=== PATIENT | male | born 1990 | race Caucasian/White ===

== ENCOUNTER 2017-03-15 04:21 | Emergency (ER) | payer OTHER ==
[2017-03-15 05:00] LABS: ADD MAN DIFF? NO
[2017-03-15 05:06] LABS: BASO % 0 % (0-3); EOS # 0.2 x10^3/uL (0.0-0.7); EOS % 2 % (0-3); HEMATOCRIT 50.8 % (39.0-53.0); HEMOGLOBIN 17.4 g/dL (13.0-17.5); LYMPH % 29 % (24-48); MEAN CORPUSCULAR HEMOGLOBIN 30 pg (25-35); MEAN CORPUSCULAR HGB CONC 34 g/dL (31-37); MEAN CORPUSCULAR VOLUME 86 fL (79-100); MONO # 0.8 x10^3/uL (0.0-1.1); MONO % 12 % (0-9); NEUT # 3.9 x10^3uL (1.8-7.7); NEUT % 57 % (31-73); PLATELET COUNT 177 x10^3/uL (140-400); RED BLOOD COUNT 5.91 x10^6/uL (4.30-5.70); RED CELL DISTRIBUTION WIDTH 12.7 % (11.5-14.5); WHITE BLOOD COUNT 6.9 x10^3/uL (4.0-11.0)
[2017-03-15 05:16] LABS: ANION GAP 10 (6-14); BLOOD UREA NITROGEN 11 mg/dL (8-26); CALCIUM 8.9 mg/dL (8.5-10.1); CARBON DIOXIDE 30 mmol/L (21-32); CHLORIDE 100 mmol/L (98-107); CREATININE 0.9 mg/dL (0.7-1.3); GFR 102.8; GLUCOSE 102 mg/dL (70-99); POTASSIUM 3.8 mmol/L (3.5-5.1); SODIUM 140 mmol/L (136-145)
[2017-03-15 05:24] LABS: TROPONINI < 0.017 ng/mL (0.000-0.055)
[2017-03-15 05:26] LABS: BARBITURATES NEG (NEG); BENZODIAZEPINES NEG (NEG); CANNABINOIDS NEG (NEG); COCAINE NEG (NEG); METHADONE NEG (NEG); OPIATES NEG (NEG); PHENCYCLIDINE NEG (NEG)
[2017-03-15 05:27] LABS: AMPHETAMINE/METHAMPHETAMINE NEG (NEG); ETHANOL, URINE NEG (NEG)
[2017-03-15 05:36] LABS: THYROID STIM HORMONE (TSH) 1.292 uIU/mL (0.358-3.74)
== END 2017-03-15 06:55 | disposition home or self-care (01) ==
LOC: ER 04:21
DX: R00.2 Palpitations (principal); R55 Syncope and collapse
CPT/HCPCS: 36415; 71045; 80048; 80307; 84443; 84484; 85025; 93005; 99285-25

== ENCOUNTER 2018-06-04 02:47 | Emergency (ER) | payer OTHER ==
[~2018-06-04] VITALS: Ht 170.2 cm; Wt 86.2 kg
[2018-06-04 02:58] VITALS: BP 121/87
--- NOTE | 2018-06-04 03:12 | PHYS DOC ---
Past Medical History Past Medical History: No Pertinent History Alcohol Use: None Drug Use: None Adult General Chief Complaint Chief Complaint: Palpitations HPI HPI 28-year-old otherwise healthy male who works at [employer] presents with palpitations. Patient states he did have 60 mg of caffeine over the last several hours. He states he got home he felt his heart rate slowed down and then speed up quickly this happened twice. He denies any shortness of breath or chest pain. He does state that work is stressful and these likely anxious about things going on at work. He has not passed out or felt like he was can pass out. He has not used any illicit drugs.[] Review of Systems Review of Systems Constitutional: Denies fever or chills [] Eyes: Denies change in visual acuity, redness, or eye pain [] HENT: Denies nasal congestion or sore throat [] Respiratory: Denies cough or shortness of breath [] Cardiovascular: No additional information not addressed in HPI [] GI: Denies abdominal pain, nausea, vomiting, bloody stools or diarrhea [] : Denies dysuria or hematuria [] Musculoskeletal: Denies back pain or joint pain [] Integument: Denies rash or skin lesions [] Neurologic: Denies headache, focal weakness or sensory changes [] Endocrine: Denies polyuria or polydipsia [] All other systems were reviewed and found to be within normal limits, except as documented in this note. Allergies Allergies Allergies Coded Allergies Type Severity Reaction Last Updated Verified No Known Drug Allergies 03/15/17 No Physical Exam Physical Exam Constitutional: Well developed, well nourished, no acute distress, non-toxic appearance. [] HENT: Normocephalic, atraumatic, bilateral external ears normal, oropharynx moist, no oral exudates, nose normal. [] Eyes: PERRLA, EOMI, conjunctiva normal, no discharge. [] Neck: Normal range of motion, no tenderness, supple, no stridor. [] Cardiovascular:Heart rate regular rhythm, no murmur [] Lungs & Thorax: Bilateral breath sounds clear to auscultation [] Abdomen: Bowel sounds normal, soft, no tenderness, no masses, no pulsatile masses. [] Skin: Warm, dry, no erythema, no rash. [] Back: No tenderness, no CVA tenderness. [] Extremities: No tenderness, no cyanosis, no clubbing, ROM intact, no edema. [] Neurologic: Alert and oriented X 3, normal motor function, normal sensory function, no focal deficits noted. [] Psychologic: Anxious. [] EKG EKG [] Interpretation Time: EKG: Normal sinus rhythm rate of [address]-T changes Radiology/Procedures Radiology/Procedures [] Course & Med Decision Making Course & Med Decision Making Pertinent Labs and Imaging studies reviewed. (See chart for details) [ED course: Evaluation reveals a healthy 28-year-old anxious male in no distress. EKG was completely normal. We observed him on the monitor for approximately 20 minutes without any issues. I did explain to the patient that he would need to follow with his primary care physician to have an event recorder or Holter monitor placed. Her stands.] Dragon Disclaimer Dragon Disclaimer This electronic medical record was generated, in whole or in part, using a voice recognition dictation system. Departure Departure Impression: Primary Impression: Palpitations Disposition: HOME, SELF-CARE Condition: STABLE Referrals: FRANK GARDINER MD (PCP) Patient Instructions: Palpitations Additional Instructions: Follow with your primary care physician later this week to discuss the need for a Holter monitor. Return to the emergency department with any new or concerning symptoms KHANG MCNAMARA DO Jun 04, 2018 03:12
--- NOTE | 2018-06-04 07:04 | EKG ---
[facility] [address] [place] [address] Test Date: 2018-06-04 Test Time: 02:59:47 Pat Name: DEMETRICE BELTRAN Department: Room: Gender: [employer]: : 1990 Requested By: KHNAG MCNAMARA Order Number: [id number] Reading MD: Israel Gutierrez MD Measurements Intervals [place] Rate: 92 P: 90 AR: 148 QRS: 53 QRSD: 94 T: 36 QT: 336 QTc: 420 Interpretive Statements SINUS RHYTHM Electronically Signed On 06-16-2018 9:53:29 CDT by Israel Gutierrez MD
== END 2018-06-04 03:17 | disposition home or self-care (01) ==
LOC: ER 02:47
DX: R00.2 Palpitations (principal)
CPT/HCPCS: 93005; 99283